=== PATIENT | male | born 1950 | race Caucasian/White ===

== ENCOUNTER 2019-11-16 16:25 | Inpatient (IN) | payer MEDICARE ==
[~2019-11-16] VITALS: Ht 185.4 cm; Wt 95.3 kg
--- NOTE | 2019-11-16 16:48 | Emergency Department Note ---
History of Present Illnes History of Present Illness Chief Complaint: General Medicine Complaints History of Present Illness This is a 69 year old male Chief Complaint Comment Patient in from home with complaints of heart palpitations and rapid heart rate for the last few months. Patient reports that the feeling has gotten worse over the last two days. He saw his PCP today where an EKG was done and blood work was drawn and he was told to come to the ER. Patient denies chest pain and shortness of breath. Patient states that he has also felt weak due to poor appetite. Historian: Patient Arrival Mode: Car Charge Lpn Required: No Location: Chest Quality: Palpitations Radiation: Reports non-radiation Severity: mild Onset quality: gradual Duration (how long): month(s) Timing of current episode: intermittent Progression: unchanged Chronicity: new Context: Denies recent illness, Denies recent surgery Relieving factors: none Exacerbating factors: none Associated symptoms: Reports denies other symptoms Treatments prior to arrival: none Past Medical/Family History Physician Review I have reviewed the patient's past medical and family history. Any updates have been documented here. Past Medical History Recent Fever: No Clinical Suspicion of Infectio: No New/Unexplained Change in Ment: No Past Medical History: Hypertension, A-Fib Other Surgery: arthroscopic knee surgery Social History Physically hurt or threatened: No Review of Systems Review of Systems Constitutional: Reports as per HPI EENTM: Reports no symptoms Cardiovascular: Reports no symptoms, Reports palpitations Respiratory: Reports no symptoms Gastrointestinal: Reports no symptoms Genitourinary: Reports no symptoms Musculoskeletal: Reports no symptoms Integumentary: Reports no symptoms Neurological: Reports no symptoms Psychological: Reports no symptoms Endocrine: Reports no symptoms Hematological/Lymphatic: Reports no symptoms Physical Exam Related Data Allergies: Coded Allergies: No Known Allergies (Unverified , 11/16/19) Triage Vital Signs Vital Signs Date Time Temp Pulse Resp B/P (MAP) Pulse Ox O2 Delivery O2 Flow Rate FiO2 11/16/19 16:32 100.4 105 17 127/91 95 Room Air Vital signs reviewed: Yes Physical Exam CONSTITUTIONAL Constitutional: Present well-developed, Present well-nourished HENT HENT: Present normocephalic, Present atraumatic, Present oropharynx clear/moist, Present nose normal HENT L/R: Present left ext ear normal, Present right ext ear normal EYES Eyes: Reports PERRL, Reports conjunctivae normal NECK Neck: Present ROM normal PULMONARY Pulmonary: Present effort normal, Present breath sounds normal CARDIOVASCULAR Cardiovascular: Present irregular rhythm, Present heart sounds normal, Present capillary refill normal, Present tachycardia GASTROINTESTINAL Abdominal: Present soft, Present nontender, Present bowel sounds normal GENITOURINARY Genitourinary: Present exam deferred SKIN Skin: Present warm, Present dry MUSCULOSKELETAL Musculoskeletal: Present ROM normal NEUROLOGICAL Neurological: Present alert, Present oriented x 3, Present no gross motor or sensory deficits PSYCHOLOGICAL Psychological: Present mood/affect normal, Present judgement normal Results Laboratory Lab results reviewed: Yes Imaging Imaging results reviewed: Yes Procedures 12 Lead ECG Interpretation ECG Interpretation : ECG: ECG 1 Date: Nov 16, 2019 Rhythm: atrial fibrillation Rate: tachycardia BPM: 113 QRS axis: normal ST segments normal: Yes T waves normal: Yes Clinical Impression: abnormal ECG Assessment & Plan Medical Decision Making MDM 69 y.o m w/ new onset A-fib w/ RVR. Uncertain when this started. W/u shows possible PNA but favor COVID over bacterial PNA. Do not suspect sepsis at this time. Septic w/u obtained. Given Rocephin and Azithro, 1L NS, 5mg lopressor and started on 1mg/kg lovenox. Discussed w/ Dr. Thomas who has agreed to admit. Reassessment Reassessment time: 17:58 Reassessment Well appearing, NAD Assessment & Plan Final Impression: (1) A-fib (2) Suspected 2019 novel coronavirus infection Depart Disposition: ADMITTED Last Vital Signs Date Time Temp Pulse Resp B/P (MAP) Pulse Ox O2 Delivery O2 Flow Rate FiO2 11/16/19 16:32 100.4 105 17 127/91 95 Room Air SIN GONZALES MD Nov 16, 2019 16:48
[2019-11-16 17:03] LABS: BASOPHILS % 0.3 % (0.0-1.0); EOSINOPHILS # (AUTO) 0.2 (0.0-0.4); EOSINOPHILS % 2.9 % (0.0-6.0); HEMATOCRIT 41.6 % (38.2-49.6); HEMOGLOBIN 14.4 g/dL (14.0-18.0); LYMPHOCYTES # (AUTO) 1.5 (1.0-3.2); LYMPHOCYTES % 20.1 % (18.0-39.1); MEAN CORPUSCULAR HEMOGLOBIN 27.7 pg (28-32); MEAN CORPUSCULAR HGB CONC 34.6 g/dL (31-35); MEAN CORPUSCULAR VOLUME 80.2 fL (81-99); MONOCYTES # (AUTO) 0.6 (0.2-0.8); MONOCYTES % 7.4 % (4.4-11.3); NEUTROPHILS # (AUTO) 5.3 (2.1-6.9); NEUTROPHILS % 68.6 % (38.7-80.0); PLATELET COUNT 200 x10e3/uL (140-360); RED BLOOD COUNT 5.19 x10e6/uL (4.3-5.7); RED CELL DISTRIBUTION WIDTH 13.7 % (11.7-14.4)
[2019-11-16 17:07] LABS: INR 1.04; PROTHROMBIN TIME 14.1 seconds (11.9-14.5)
[2019-11-16] MEDS ORDERED: METOPROLOL TARTRATE INJ 1 MG/ML VIAL IV ONE (17:15)
[2019-11-16 17:17] LABS: ALBUMIN 4.5 g/dL (3.5-5.0); ALBUMIN/GLOBULIN RATIO 1.4 (0.8-2.0); ANION GAP 20.2 mmol/L (8-16); CALCIUM 8.4 mg/dL (8.4-10.2); CREATININE, SERUM 1.44 mg/dL (0.72-1.25); POTASSIUM 3.2 mmol/L (3.5-5.1)
--- NOTE | 2019-11-16 17:32 | Diagnostic Imaging Report ---
EXAMINATION: CHEST SINGLE (PORTABLE) INDICATION: Chest pain COMPARISON: None FINDINGS: AP view TUBES and LINES: None. . LUNGS/PLEURA: Lungs are well inflated. There are faint bibasilar opacities could represent atelectasis or pneumonia in appropriate clinical setting. There is no pleural effusion or pneumothorax. HEART AND MEDIASTINUM: The cardiomediastinal silhouette is unremarkable. BONES AND SOFT TISSUES: No acute osseous lesion. Soft tissues are unremarkable. UPPER ABDOMEN: No free air under the diaphragm. IMPRESSION: Faint bibasilar opacities could represent atelectasis or pneumonia in appropriate clinical setting. Signed by: Anton Hook MD on 11/16/2019 5:29 PM
[2019-11-16 17:33] LABS: THYROID STIMULATING HORMONE 1.226 uIU/mL (0.350-4.940)
[2019-11-16] MEDS ORDERED: SODIUM CHLORIDE 0.9% 1000ML 1,000 ML IV SCH (17:45)
[2019-11-16] MEDS ORDERED: ENOXAPARIN SODIUM INJ 100 MG/ML SYR SC SCH (18:00)
[2019-11-16] MEDS ORDERED: CEFTRIAXONE SOD 1 GM/NS 50 ML 50 ML IV ONE ×2 (18:00→21:25)
--- OUTSIDE RECORDS SUMMARY | 2019-11-16 18:01 | XMS REPORT | Continuity of Care Document ---
Author Author [facility] Organization [facility] Address [address] [place] [address] Dr. Gruber [address] [place] [phone] Phone Unavailable Care Team Providers Care Tier Truck Driver Name Role Phone Dre Diop Attphys Unavailable Problems This patient has no known problems. Allergies, Adverse Reactions, Alerts This patient has no known allergies or adverse reactions. Medications This patient has no known medications. Procedures This patient has no known procedures. Results Test Description Test Time Test Comments Results Result Comments Source CHEST SINGLE (PORTABLE) 2019-11-16 17:23:00 [place] [address] Patient Name: SRIDHAR MOMIN MR #: [id number] : 1950 Age/Sex: 69/M Req #: [id number] Adm Physician: Ordered by: Sin Diop MD Report #: [id number] Location: ER Room/Bed: Procedure: [id number] DX/CHEST SINGLE (PORTABLE) Exam Date: 11/16/19 Exam Time: 1708 REPORT STATUS: Signed EXAMINATION: CHEST SINGLE (PORTABLE) INDICATION: Chest pain COMPARISON: None FINDINGS: AP view TUBES and LINES: None. . LUNGS/PLEURA: Lungs are well inflated. There are faint bibasilar opacities could represent atelectasis or pneumonia in appropriate clinical setting. There is no pleural effusion or pneumothorax. HEART AND MEDIASTINUM: The cardiomediastinal silhouette is unremarkable. BONES AND SOFT TISSUES: No acute osseous lesion. Soft tissues are unremarkable. UPPER ABDOMEN: No free air under the diaphragm. IMPRESSION: Faint bibasilar opacities could represent atelectasis or pneumonia in appropriate clinical setting. Signed by: Anton Hui MD on 11/16/2019 5:29 PM Dictated By: ANTON HUI MD 28 Transcribed By: FREYA on 11/16/191728 COPY TO: SIN DIOP MD
[2019-11-16] MEDS ORDERED: AZITHROMYCIN 250 MG TAB PO ONE ×2 (18:10→21:45)
[2019-11-16] MEDS ORDERED: ACETAMINOPHEN 325 MG TAB PO ONE ×2 (18:15→21:45)
--- NOTE | 2019-11-16 19:53 | NUR ---
blood culture and lactic acid drawn at this time
[2019-11-16 20:00] VITALS: BP 135/95
--- NOTE | 2019-11-16 20:15 | NUR ---
RECEIVED PATIENT FROM ER. PATIENT IS AAOX4. RES EVEN AND UNLABORED. NO ACUTE DISTRESS AT THIS TIME. TELE IN PLACE. ORIENTED PATIENT TO ROOM. EDUCATED PT ABOUT FALL PRECAUTIONS. PT VERBALIZED UNDERSTANDING. BED IS LOW AND LOCKED. SIDE RAILS X2. CALL LIGHT WITH IN EASY REACH. BED ALARM IS ON. ALL SAFETY MEASURES IN PLACE. PT DENIES NEEDS AT THIS TIME. CONTINUE TO MONITOR CLOSELY
[2019-11-16 20:30] VITALS: BP 135/95
--- NOTE | 2019-11-16 21:00 | NUR ---
RECEIVED REPORT FROM ER NURSE THAT ABX WAS GIVEN IN ER. ER DOCTOR NOTE SAID ABX WERE GIVEN. EMAR SHOWED THAT ABX WERE NOT GIVEN. VERIFIED WITH PHARMACY. NO ABX WAS PULLED FOR THE PATIENT. NOTIFIED CHARGE NURSE. WILL MEDICATE PATIENT PER EMAR
[2019-11-16] MEDS ORDERED: ZEBETA10 MG PO (21:15)
[2019-11-16] MEDS: ENOXAPARIN SODIUM INJ 100 MG/ML SYR SC SCH (21:30)
[2019-11-16] MEDS ORDERED: SODIUM CHLORIDE 0.9% 250ML 250 ML ONE (21:34)
--- NOTE | 2019-11-16 21:54 | NUR ---
VERIFIED WITH DR KNAPP AND CLIENT RELATIONSHIP CONSULTANT NANDO. DR COBURN WILL TAKE CARE OF THE PATIENT THIS ADMISSION
[2019-11-16 22:21] VITALS: BP 135/95
[2019-11-16 22:55] LABS: PHOSPHORUS 2.5 MG/DL (2.3-4.7)
[2019-11-16] MEDS ORDERED: METOPROLOL TARTRATE INJ 1 MG/ML VIAL IV PRN (23:00)
[2019-11-16] MEDS ORDERED: ONDANSETRON HCL INJ 2MG/ML 2ML 2 MG/ML VIAL IV PRN (23:00)
[2019-11-16] MEDS ORDERED: TEMAZEPAM 7.5 MG CAP PO PRN (23:00)
[2019-11-16] MEDS ORDERED: ACETAMINOPHEN 325 MG TAB PO PRN (23:00)
[2019-11-16] MEDS ORDERED: POLYETHYLENE GLYCOL 3350 17 GM PACK PO PRN (23:00)
[2019-11-16] MEDS ORDERED: POTASSIUM CHLORIDE 20 MEQ TAB CR PO STA (23:31)
[2019-11-16] MEDS: SODIUM CHLORIDE 0.9% 1000ML 1,000 ML IV SCH (23:57)
[2019-11-17] VITALS (7 sets, daily range): BP systolic 109–140; BP diastolic 66–88
[2019-11-17 05:45] LABS: BASOPHILS % 0.2 % (0.0-1.0); EOSINOPHILS % 0.5 % (0.0-6.0); HEMATOCRIT 34.6 % (38.2-49.6); HEMOGLOBIN 11.9 g/dL (14.0-18.0); LYMPHOCYTES # (AUTO) 1.8 (1.0-3.2); LYMPHOCYTES % 27.8 % (18.0-39.1); MEAN CORPUSCULAR HEMOGLOBIN 27.4 pg (28-32); MEAN CORPUSCULAR HGB CONC 34.4 g/dL (31-35); MEAN CORPUSCULAR VOLUME 79.5 fL (81-99); MONOCYTES # (AUTO) 0.6 (0.2-0.8); MONOCYTES % 9.1 % (4.4-11.3); NEUTROPHILS # (AUTO) 3.9 (2.1-6.9); NEUTROPHILS % 62.1 % (38.7-80.0); PLATELET COUNT 177 x10e3/uL (140-360); RED BLOOD COUNT 4.35 x10e6/uL (4.3-5.7); RED CELL DISTRIBUTION WIDTH 13.7 % (11.7-14.4)
[2019-11-17 06:04] LABS: ALANINE AMINOTRANSFERASE 32 IU/L (0-55); ALBUMIN 3.5 g/dL (3.5-5.0); ALBUMIN/GLOBULIN RATIO 1.4 (0.8-2.0); ALKALINE PHOSPHATASE 44 IU/L (40-150); ANION GAP 13.6 mmol/L (8-16); BLOOD UREA NITROGEN 16 mg/dL (7-26); BUN/CREATININE RATIO 15 (6-25); CALCIUM 7.6 mg/dL (8.4-10.2); CARBON DIOXIDE 19 mmol/L (22-29); CHLORIDE 106 mmol/L (98-107); CHOL/HDL RATIO 5.3 (3.9-4.7); CHOLESTEROL 95 MD/DL (0-199); CREATININE, SERUM 1.08 mg/dL (0.72-1.25); EST GLOMERULAR FILTRATION RATE > 60 ML/MIN (60-); GLUCOSE 98 mg/dL (74-118); HDL CHOLESTEROL 18 MG/DL (40-60); LDL CHOLESTEROL 62 MG/DL (60-130); POTASSIUM 3.6 mmol/L (3.5-5.1); SODIUM 135 mmol/L (136-145); TRIGLYCERIDES 75 MG/DL (0-149)
[2019-11-17 07:38] LABS: CLARITY,URINE SL CLOUDY (CLEAR); COLOR,URINE YELLOW (YELLOW); LEUKOCYTE ESTERASE ,URINE NEGATIVE (NEGATIVE); NITRITE,URINE NEGATIVE (NEGATIVE)
[2019-11-17 07:39] LABS: BACTERIA,URINE RARE /HPF; BILIRUBIN,URINE SMALL (NEGATIVE); EPITHELIAL CELLS,URINE FEW /LPF; KETONES,URINE NEGATIVE (NEGATIVE); PROTEIN,URINE DIPSTICK 1+ (NEGATIVE); URINE UROBILINOGEN 1 mg/dL (0.2 - 1)
[2019-11-17] MEDS ORDERED: DOCUSATE SODIUM 100 MG CAP PO SCH (09:00)
[2019-11-17] MEDS: SODIUM CHLORIDE 0.9% 1000ML 1,000 ML IV SCH (09:56)
[2019-11-17] MEDS: ENOXAPARIN SODIUM INJ 100 MG/ML SYR SC SCH ×2 (09:56→21:38)
[2019-11-17] MEDS: FAMOTIDINE 20 MG/2 ML VIAL IV SCH ×2 (09:56→16:27)
[2019-11-17] MEDS ORDERED: METOPROLOL TARTRATE 25 MG TAB PO SCH (10:00)
[2019-11-17] MEDS: CHOLESTYRAMINE 4 GM PACKET PO SCH ×2 (10:04→17:06)
--- NOTE | 2019-11-17 11:02 | NUR ---
PT OFF UNIT FOR TEST.
--- NOTE | 2019-11-17 11:03 | NUR ---
PT WORKING WITH PT AT THIS TIME, PT TOLERATING WELL.
--- NOTE | 2019-11-17 11:20 | NUR ---
PT RETURNED TO UNIT RESP EVEN AND UNLABORED AT THIS TIME.
--- NOTE | 2019-11-17 12:09 | Diagnostic Imaging Report ---
CT of the chest, without contrast, 11/17/2019. History: Abnormal prior chest x-ray. A. fib, diarrhea. Comparison: Chest x-ray 11/16/2019. Technique: Multidetector CT scanning of the chest was performed from the level of the apices to the upper abdomen without contrast. Coronal and sagittal multiplanar reformations were obtained. RADIATION DOSE: Total DLP: 636 mGy*cm Dose modulation, iterative reconstruction, and/or weight based adjustment of the mA/kV was utilized to reduce the radiation dose to as low as reasonably achievable. Discussion: Evaluation is limited without IV contrast. Chest: The heart, aorta, and pulmonary vessels are normal in size. The thyroid is unremarkable. There is no gross evidence of adenopathy. Patchy peripheral ground glass opacities are present throughout both lungs. There is no evidence of consolidation, mass, or pleural effusion. Limited evaluation of the upper abdomen shows normal adrenal glands. Bones and soft tissues: No acute abnormality. Degenerative changes are present throughout the thoracic spine. IMPRESSION: Commonly reported imaging features of Covid 19 pneumonia are present. Other processes such as influenza pneumonia and organizing pneumonia, as can be seen with drug toxicity and connective tissue disease, can cause a similar imaging pattern. The findings were discussed with the patient's nurse Risa at 1205 on 11/17/2019. Signed by: Yasir Chan on 11/17/2019 12:06 PM
--- NOTE | 2019-11-17 12:19 | NUR ---
Skilled PT services not indicated at this time since patient is independent in functional mobility. Thank you. Addendum: 11/17/19 at 1220 by Rojelio dumont PT Amended: Links added.
[2019-11-17] MEDS ORDERED: CEFTRIAXONE SOD 1 GM/NS 50 ML 50 ML IV SCH (15:45)
--- NOTE | 2019-11-17 16:30 | Consultation ---
DATE OF CONSULTATION: Pulmonary Critical Care Consultation. CHIEF COMPLAINT: Palpitations and diaphoresis. HISTORY OF PRESENT ILLNESS: The patient is a 69-year-old man. He came to the hospital complaining of tachycardia and some sweating. When he arrived to the hospital, he was found to have atrial fibrillation with a rapid ventricular response. He received medications including metoprolol and his rate is controlled. Evaluation in the ER showed an abnormal chest x-ray with peripheral radiopaque lesions. He had a chest CT that showed patchy ground-glass appearance, suggestive of possible COVID. His original COVID test was negative. He denied any fevers or cough. PAST MEDICAL HISTORY: 1. Diabetes. 2. CHF. 3. History of previous lymphoma. 4. History of hypertension. PAST SURGICAL HISTORY: Knee surgery. SOCIAL HISTORY: The patient quit smoking 5 years ago. He is not a heavy drinker. ALLERGIES: THERE ARE NO KNOWN DRUG ALLERGIES. FAMILY HISTORY: Noncontributory. REVIEW OF SYSTEMS: The patient is afebrile. He is not complaining of headache or neck pain. He has minimal cough. He has some chest discomfort, though has improved. He had palpitations. He has no dyspnea. He has no abdominal pain. No nausea, vomiting. He has no leg edema. PHYSICAL EXAMINATION: VITAL SIGNS: The patient is afebrile, blood pressure is 140/80, and pulse is 95 to 105, saturation is 96%. HEENT: Shows no facial swelling or erythema. LYMPHATIC: Shows no submandibular, cervical, or supraclavicular adenopathy. CARDIAC: Reveals regular rhythm with normal S1, S2. LUNGS: Auscultation of lungs reveals crackles and rhonchi at the bases. There is no wheezing. ABDOMEN: Soft and nontender. There is no rebound or guarding. EXTREMITIES: Shows no leg edema or calf tenderness. There is no cyanosis or clubbing. SKIN: Shows no rashes. NEUROLOGICAL: Shows no focal abnormalities. LABORATORY DATA: White blood cell count is 6.3 and hemoglobin is 11.9, the platelet count 177. The BUN to creatinine ratio is normal. The other electrolytes within normal limits. RADIOGRAPHIC DATA: CT scan shows patchy peripheral ground-glass opacities throughout both lung [place]. IMPRESSION: 1. Patchy peripheral pulmonary infiltrates, suggestive of possible viral pneumonia. 2. Atrial fibrillation with rapid ventricular response. 3. Acute kidney injury. 4. Hypertension. PLAN: 1. Await repeat COVID testing. 2. Continue antibiotics. 3. COVID test is negative, consider amiodarone toxicity depending on history. MD ALEXEI Vargas/FERNANDA /[id number]
[2019-11-17] MEDS: BISOPROLOL FUMARATE 10 MG TAB PO SCH (16:31)
--- NOTE | 2019-11-17 19:10 | NUR ---
RECEIVED PATIENT. PATIENT IS AAOX4. RES EVEN AND UNLABORED. NO ACUTE DISTRESS AT THIS TIME. TELE IN PLACE. EDUCATED PT ABOUT FALL PRECAUTIONS. PT VERBALIZED UNDERSTANDING. BED IS LOW AND LOCKED. SIDE RAILS X2. CALL LIGHT WITH IN EASY REACH. ALL SAFETY MEASURES IN PLACE. PT DENIES NEEDS AT THIS TIME. CONTINUE TO MONITOR CLOSELY
[2019-11-17] MEDS ORDERED: ACETAMINOPHEN/CODEINE 300MG - 30MG TAB PO PRN (21:00)
[2019-11-18] VITALS: BP 125/79
[2019-11-18 00:01] VITALS: BP 127/88
--- NOTE | 2019-11-18 02:47 | Consultation ---
DATE OF CONSULTATION: 11/17/2019 Cardiology Consult Note REASON FOR CONSULTATION: Atrial fibrillation with RVR. CHIEF COMPLAINT: Shortness of breath, palpitations. HISTORY OF PRESENT ILLNESS: The patient is a 69-year-old man, presenting with episodes of palpitations and worsening shortness of breath. No chest pain. No prior cardiovascular history. REVIEW OF SYSTEMS: As per HPI, otherwise negative. SOCIAL HISTORY: Does not smoke. Occasionally drinks. No drugs. FAMILY HISTORY: Noncontributory. OUTPATIENT MEDICATIONS: Reviewed. ALLERGIES: NO KNOWN DRUG ALLERGIES. OBJECTIVE: VITAL SIGNS: Temperature afebrile, pulse 101, respiratory rate 19, blood pressure 140/83, saturating 97% on room air. GENERAL: Middle-aged man, in no acute distress. CARDIOVASCULAR: Irregular rate and rhythm. No murmurs, rubs, or gallops. LUNGS: Coarse breath sounds at bilateral bases. ABDOMEN: Soft, nontender, nondistended. NEURO AND PSYCH: Alert, oriented to person, place, and time. Normal affect. EXTREMITIES: Lower extremities, no edema. Warm, well perfused. No varicosities or ulcers. INPATIENT MEDICATIONS: Reviewed. LABORATORY DATA: Reviewed. Hemoglobin is 11.9. GFR greater than 60. BNP 230. Troponin is negative. TELEMETRY DATA: Reviewed shows AFib with RVR. IMAGING DATA: Reviewed. Chest CT shows imaging features consistent with COVID-19 pneumonia. The COVID swab was negative. ASSESSMENT: 1. Atrial fibrillation with rapid ventricular response. 2. Possible coronavirus disease-2019 pneumonia. PLAN: Continue beta-blockers for rate control. Currently, treatment of possible COVID-19 per Pulmonary. Once patient is definitively ruled out for COVID-19 or if he remains in AFib, we will plan for GUILLERMINA cardioversion. Otherwise, continue full-dose Lovenox and bisoprolol. Echocardiogram results are pending. Thank you for this consult. We will continue to follow. MD THEO Jeffrey/FERNANDA /[id number]
[2019-11-18 03:54] LABS: BASOPHILS % 0.2 % (0.0-1.0); EOSINOPHILS % 0.3 % (0.0-6.0); HEMATOCRIT 35.4 % (38.2-49.6); HEMOGLOBIN 11.8 g/dL (14.0-18.0); LYMPHOCYTES # (AUTO) 1.9 (1.0-3.2); LYMPHOCYTES % 21.8 % (18.0-39.1); MEAN CORPUSCULAR HEMOGLOBIN 27.2 pg (28-32); MEAN CORPUSCULAR HGB CONC 33.3 g/dL (31-35); MEAN CORPUSCULAR VOLUME 81.6 fL (81-99); MONOCYTES # (AUTO) 0.6 (0.2-0.8); MONOCYTES % 7.1 % (4.4-11.3); NEUTROPHILS # (AUTO) 6.1 (2.1-6.9); NEUTROPHILS % 70.3 % (38.7-80.0); PLATELET COUNT 211 x10e3/uL (140-360); RED BLOOD COUNT 4.34 x10e6/uL (4.3-5.7); RED CELL DISTRIBUTION WIDTH 13.6 % (11.7-14.4)
[2019-11-18 04:00] VITALS: BP 119/77
[2019-11-18 04:14] LABS: ANION GAP 15.5 mmol/L (8-16); BLOOD UREA NITROGEN 12 mg/dL (7-26); BUN/CREATININE RATIO 12 (6-25); CALCIUM 7.7 mg/dL (8.4-10.2); CARBON DIOXIDE 16 mmol/L (22-29); CHLORIDE 108 mmol/L (98-107); CREATININE, SERUM 0.97 mg/dL (0.72-1.25); EST GLOMERULAR FILTRATION RATE > 60 ML/MIN (60-); GLUCOSE 95 mg/dL (74-118); POTASSIUM 3.5 mmol/L (3.5-5.1); SODIUM 136 mmol/L (136-145)
[2019-11-18] MEDS ORDERED: ZITHROMAX500 MG PO (06:22)
[2019-11-18] MEDS ORDERED: CEFDINIR300 MG PO (06:22)
[2019-11-18] MEDS ORDERED: AZITHROMYCIN 500MG/NS 250 ML 250 ML IV SCH (06:30)
[2019-11-18 07:42] VITALS: BP 119/77
[2019-11-18 07:48] VITALS: BP 142/91
[2019-11-18] MEDS ORDERED: METOPROLOL SUCCINATE 25 MG TAB XL PO SCH (09:00)
[2019-11-18] MEDS: FAMOTIDINE 20 MG/2 ML VIAL IV SCH (09:16)
[2019-11-18] MEDS: BISOPROLOL FUMARATE 10 MG TAB PO SCH (09:16)
[2019-11-18] MEDS: CHOLESTYRAMINE 4 GM PACKET PO SCH (10:00)
--- NOTE | 2019-11-18 10:27 | NUR ---
Per Dr. Lupe Herman, GUILLERMINA is cancelled at this time and patient can eat.
--- NOTE | 2019-11-18 10:42 | NUR ---
IMM letter delivered to pt. He stated he is ready to go home as soon as possible and that he won't be appealing. Copy given to pt. Signed copy placed in chart.
[2019-11-18 11:29] VITALS: BP_SYST 126
--- NOTE | 2019-11-18 11:30 | NUR ---
Joanna Caldwell NP notified of cardiac clearance for dc home. Orders received to dc home.
--- NOTE | 2019-11-18 11:30 | NUR ---
Dr. Lupe Herman is here making rounds. He saw the patient and has cleared for DC, GUILLERMINA can be done outpatient and f/u in office in two weeks. ECHO must be completed today prior to dc.
[2019-11-18] MEDS: ENOXAPARIN SODIUM INJ 100 MG/ML SYR SC SCH (11:33)
[2019-11-18] MEDS ORDERED: AMIODARONE HCL100 MG PO (11:48)
[2019-11-18] MEDS ORDERED: FUROSEMIDE40 MG PO (11:48)
[2019-11-18] MEDS ORDERED: XARELTO20 MG PO (11:50)
--- NOTE | 2019-11-18 12:45 | NUR ---
Discharge instructions and prescriptions were discussed with the patient. He verbalized understanding. IV was removed from his right ac with tip intact.
--- NOTE | 2019-11-18 13:09 | NUR ---
analytical tech is here at bedside
--- NOTE | 2019-11-19 07:36 | Discharge Summary ---
ADMISSION DIAGNOSES: New onset atrial fibrillation with RVR, community-acquired pneumonia present on admission, ELADIA with metabolic acidosis, hypokalemia, dehydration, and hypertension. DISCHARGE DIAGNOSES: New onset atrial fibrillation with RVR, community-acquired pneumonia present on admission, ELADIA with metabolic acidosis, hypokalemia, dehydration, and hypertension and rule out flu, rule out COVID, rule out myocardial infarction. HISTORY: Hypertension. PAST SURGICAL HISTORY: Right knee surgery. FAMILY HISTORY: The patient's dad had diabetes. The patient's sister had lymphoma. The patient's mom had CHF. SOCIAL HISTORY: The patient admits to occasional alcohol use and occasional marijuana use. He admits to smoking cigarettes in the past, but quit about five years ago. HOSPITAL COURSE: A 69-year-old male admits from Dr. Bayron Zuñiga office with atrial fibrillation per EKG and chest x-ray showed possible infiltrate. On admission the patient was diagnosed with atrial fibrillation RVR. Cardiology was consulted. The patient received IV metoprolol in the ER. Chest x-ray showed faint basilar opacities. CT of the chest showed commonly reported imaging features of COVID-19. Pulmonology was consulted. BNP was elevated at 230. Troponin was negative. TSH was within normal limits. Per Cardiology, the patient was initially advised to have GUILLERMINA and possible cardioversion, but on the day that was scheduled, it was canceled and Cardiology wants him to follow up in 2 weeks. The patient is very adamant about leaving as he has had multiple deaths in the family recently. He says if we do not discharge him he will go against medical advice. Coronavirus was negative. Flu was negative. The patient was given a new prescription for Zithromax Omnicef, Lasix, amiodarone, and Xarelto. He will follow up with primary care in 1 to 2 weeks and Cardiology in 1 to 2 weeks. The patient understands instructions and agrees to plan. Vital signs stable, patient afebrile. Dictated by Joanna Becker NP MD BLAYNE Miles/MODL /[id number]
== END 2019-11-18 13:30 | disposition home or self-care (01) | DRG 308 ==
LOC: ER 17:32 → ERHOLD 17:52 → MED/SURG2 20:27
PROVIDERS: ADMIT Internal Medicine; ATTEND Internal Medicine
DX: I48.19 Other persistent atrial fibrillation (principal); J18.9 Pneumonia, unspecified organism; N17.9 Acute kidney failure, unspecified; J44.0 Chronic obstructive pulmonary disease with (acute) lower respiratory infection; E87.2 Acidosis; E87.6 Hypokalemia; R19.7 Diarrhea, unspecified; Z74.09 Other reduced mobility; E86.0 Dehydration; Z87.891 Personal history of nicotine dependence; E11.9 Type 2 diabetes mellitus without complications; Z85.72 Personal history of non-Hodgkin lymphomas; Z11.59 Encounter for screening for other viral diseases
CPT/HCPCS: 36415; 71045; 71250; 80048; 80053; 80061; 81001; 83036; 83605; 83735; 83880; 84100; 84443; 84484; 85025; 85610; 87040; 87086; 87400; 93005; 93306; 99284; J0456; J0696; J1650; J7030; J7050; U0002